=== PATIENT | female | born 1985 | race American Indian/Alaskan Native ===

== ENCOUNTER 2016-12-22 08:36 | Day surgery (SDC) | payer MEDICAID ==
[~2016-12-22 08:36] MED LIST: LACTATED RINGERS 1,000 ML IV SCH; MARCAINE 0.5% 30 ML INFILTRATI ONE; PEPCID PO NR; REGLAN PO NR; VERSED IV NR
[2016-12-22] MEDS ORDERED: NACL BACTERIOSTATIC INFILTRATI ONE (09:36)
--- NOTE | 2016-12-22 09:39 | Short Stay Summary ---
Short Stay Documentation Date of service: 12/22/16 Narrative H&P: Pt is a 31yo BF LMP 12/06/16 presents for permanent sterilization - History Principal diagnosis: Desires permanent sterilization H&P: obtained from office Past Medical History: No medical history Past Surgical History: No surgical history Social history: no significant social history, single - Allergies and Medications Current Medications: Allergies No Known Allergies Allergy (Verified 12/15/16 14:46) Home Medications Medication Instructions Recorded Confirmed Last Taken Type No Known Home Medications [No 12/15/16 12/15/16 Unknown History Reported Home Medications] Active Medications Famotidine (Pepcid) 20 mg PO PREOP NR Stop: 12/22/16 23:59 Lactated Ringer's (Lactated Ringers) 1,000 mls @ 75 mls/hr IV DIRECT SAMSON Cefazolin Sodium (Ancef/Sterile Water 2 Gm/20 Ml) 2 gm in 20 mls @ 80 mls/hr IV PREOP NR PRN Reason: Protocol Metoclopramide HCl (Reglan) 10 mg PO PREOP NR Stop: 12/22/16 23:59 Midazolam HCl (Versed) 2 mg IV PREOP NR Stop: 12/22/16 23:59 - Physical exam General appearance: no acute distress Integumentary: no rash HEENT: Atraumatic Lungs: Clear to auscultation Breasts: deferred Heart: Regular rate Gastrointestinal: normal Female Genitourinary: deferred Rectal Exam: deferred Extremities: no ischemia Neurological: Normal gait, Normal speech - Brief post op/procedure progress note Date of procedure: 12/22/16 Pre-op diagnosis: Desires permanent sterilization Post-op diagnosis: same Procedure: Laproscopic Bilateral Tubal Ligation Anesthesia: GETA Findings: Normal uterus. Normal tubes and ovaries bilaterally. Surgeon: JOYCE COLBERT Estimated blood loss: minimal Pathology: none Condition: stable - Hospital course Hospital course: Unremarkable. - Disposition Condition at discharge: Good Disposition: - TO HOME OR SELFCARE - Discharge Diagnoses (1) Encounter for sterilization Status: Resolved Short Stay Discharge Plan Activity: no restrictions Diet: regular Wound: open to air, keep clean and dry Follow up with: PRIMARY CARE, [Primary Care Provider] - 7 Days JOYCE COLBERT MD [Staff Physician] - 14 Days Prescriptions: HYDROcodone/APAP 5-325 [[place] 5/325] 1 each PO Q6HR PRN #20 tablet PRN Reason: Pain
--- NOTE | 2016-12-22 09:50 | Anesthesia Consultation ---
Anesthesia Consult and Med Hx Date of service: 12/22/16 - Airway Anesthetic Teeth Evaluation: Good, Chipped (top right molar) ROM Head & Neck: Adequate Mental/Hyoid Distance: Adequate Mallampati Class: Class II Intubation Access Assessment: Probably Good - Pulmonary Exam CTA: Yes - Cardiac Exam Cardiac Exam: RRR - Pre-Operative Health Status ASA Pre-Surgery Classification: ASA2 Proposed Anesthetic Plan: General - Pulmonary Hx Smoking: Yes (former, quit december last year) Hx Asthma: No COPD: No Hx Pneumonia: No - Cardiovascular System Hx Hypertension: No - Central Nervous System Hx Seizures: No Hx Psychiatric Problems: No - Endocrine Hx Renal Disease: No Hx Hypothyroidism: No Hx Hyperthyroidism: No - Hematic Hx Anemia: No Hx Sickle Cell Disease: No - Other Systems Hx Alcohol Use: No Hx Cancer: No Hx Obesity: Yes
--- NOTE | 2016-12-22 09:50 | Anesthesia Day of Surgery ---
Anesthesia Day of Surgery - Day of Surgery Patient Examined: Yes Patient H&P Reviewed: Yes Patient is NPO: Yes
[2016-12-22] MEDS ORDERED: ZEMURON IV ONE (10:03)
[2016-12-22] MEDS ORDERED: DIPRIVAN 10 MG/ML IV ONE (10:03)
[2016-12-22] MEDS ORDERED: SUBLIMAZE ONE (10:03)
[2016-12-22] MEDS ORDERED: XYLOCAINE MPF 2% ONE (10:03)
[2016-12-22 10:04] LABS: Hematocrit 39.1 % (30.3-42.9); Hemoglobin 12.8 gm/dl (10.1-14.3); Mean Corpuscular HGB Conc 33 % (30-34); Mean Corpuscular Hemoglobin 30 pg (28-32); Mean Corpuscular Volume 93 fl (79-97); Platelet Count 264 K/mm3 (140-440); Red Blood Count 4.22 M/mm3 (3.65-5.03); Red Cell Distribution Width 13.1 % (13.2-15.2); White Blood Count 6.5 K/mm3 (4.5-11.0)
[2016-12-22] MEDS ORDERED: ROBINUL ONE (10:30)
[2016-12-22] MEDS ORDERED: NEOSTIGMINE ONE (10:30)
[2016-12-22] MEDS ORDERED: MARCAINE 0.5% INFILTRATI ONE (10:42)
[2016-12-22] MEDS ORDERED: NACL 0.9% IR ONE (10:42)
[2016-12-22] MEDS ORDERED: ZOFRAN ONE (10:50)
[2016-12-22] MEDS ORDERED: DECADRON ONE (10:51)
[2016-12-22] MEDS ORDERED: TORADOL ONE (10:59)
[2016-12-22] MEDS ORDERED: ZOFRAN IV PRN (11:00)
[2016-12-22] MEDS ORDERED: ANCEF/STERILE WATER 2 GM/20 ML 2 GM/20 ML SYRINGE IV NR (11:00)
--- NOTE | 2016-12-22 11:04 | Operative Report ---
Operative Report Operative Report: PREOPERATIVE DIAGNOSIS: Desires permanent sterilization POSTOPERATIVE DIAGNOSIS: Same OPERATIVE PROCEDURE: Laparoscopic bilateral tubal ligation. SURGEON: Jermaine Piper MD ANESTHESIA: Gen. endotracheal intubation ANESTHESIOLOGIST: Dr. Morales ESTIMATED BLOOD LOSS: Minimal. Less than 10 mL's FINDINGS: Normal uterus. Normal tubes and ovaries bilaterally. COMPLICATIONS: None COUNTS: Correct x3. PROCEDURE: After the patient was correctly identified and after general anesthesia was administered, the patient was prepped and draped in usual sterile fashion and placed in dorsal lithotomy position. First, the bladder was emptied using a straight catheter. Next, a speculum was placed in the vaginal vault and the anterior lip of the cervix was grasped using a single- tooth tenaculum. The uterine manipulator was then placed and the tenaculum and speculum were removed. Attention was then turned to the abdomen where first a periumbilical incision was made using a skin knife, and the Optiview trocar was inserted under direct visualization. After an adequate amount of abdominal insufflation, visualization of the pelvic organs found the uterus to be normal, and the tubes and ovaries to be normal bilaterally. Next, the left fallopian tube was grasped using the Kleppingers, and after identifying the fimbriated end of the left tube, this tube was cauterized in 3 continuous places along the proximal portion of the left tube. The same procedure was performed on the right fallopian tube after first identifying the fimbriated end of the right tube. This tube was also cauterized in 3 continuous places along the proximal portion of the right tube. At this point, the procedure was then considered complete. All instruments were removed from the abdomen. The abdomen was deflated and the periumbilical incision was closed using 0 Vicryl suture in a [id number] configuration on the fascia, followed by 4-0 Monocryl suture in subcuticular fashion on the skin. The incision was also infiltrated using 0.5% Marcaine solution. The uterine manipulator was removed. The patient tolerated the procedure well and was transferred to recovery room stable condition.
--- NOTE | 2016-12-22 11:15 | Post Anesthesia Evaluation ---
- Post Anesthesia Evaluation Patient Participated: Yes Airway Patent: Yes Stable Respiratory Function: Yes Nausea/Vomiting: No Temp > 96.8F: Yes Pain Manageable: Yes Adequeate Hydration: Yes Anesthesia Complications: No Block Receding Appropriately: Not Applicable Patient on Ventilator: No
[2016-12-22] MEDS: DILAUDID IV PRN ×2 (11:20→11:30)
[2016-12-22] MEDS ORDERED: NORCO 5/325 PO ONE (11:56)
[2016-12-22 12:16] VITALS: BP 132/87
== END 2016-12-22 08:37 | disposition home or self-care (01) ==
LOC: OR 08:36
PROVIDERS: ATTEND Obstetrics & Gynecology
DX: Z30.2 Encounter for sterilization (principal); E66.9 Obesity, unspecified; Z68.31 Body mass index [BMI] 31.0-31.9, adult; Z87.891 Personal history of nicotine dependence
CPT/HCPCS: 36415; 58670; 81025; 85027; J0690; J1100; J1170; J1885; J2250; J2405; J2704; J2710; J3010; J7120